=== PATIENT | male | born 1955 | race Native Hawaiian/Other Pacific Islander ===

== ENCOUNTER 2021-03-11 08:51 | Outpatient (CLI) | payer OTHER | END 2021-03-11 19:30 | disposition home or self-care (01) | LOC: CT 08:51 | PROVIDERS: ATTEND Internal Medicine | DX: Z94.2 Lung transplant status (principal); Z13.820 Encounter for screening for osteoporosis; M81.8 Other osteoporosis without current pathological fracture ==

== ENCOUNTER 2021-05-14 07:57 | Outpatient (CLI) | payer OTHER | END 2021-05-14 19:06 | disposition home or self-care (01) | LOC: RESP 07:57 | PROVIDERS: ATTEND Specialist | DX: G62.89 Other specified polyneuropathies (principal) | CPT/HCPCS: 95885; 95907 ==

== ENCOUNTER 2021-05-15 12:05 | Outpatient (CLI) | payer OTHER | END 2021-05-15 20:22 | disposition home or self-care (01) | LOC: LABW 12:05 | PROVIDERS: ATTEND Specialist | DX: G62.89 Other specified polyneuropathies (principal); Z94.2 Lung transplant status; R53.82 Chronic fatigue, unspecified | CPT/HCPCS: 36415; 80074; 82175; 84446; 85652; 86140; 86225; 86334 ==

== ENCOUNTER 2021-06-12 10:55 | Outpatient (CLI) | payer OTHER ==
[2021-06-12 11:41] LABS: PLATELET COUNT 229 K/uL (142-355)
[2021-06-12 12:11] LABS: POTASSIUM 3.9 mmol/L (3.6-5.2)
== END 2021-06-12 18:55 | disposition home or self-care (01) ==
LOC: RAD 10:55 → LABW 10:55 → RAD 18:55
PROVIDERS: ATTEND Plastic Surgery Plastic Surgery Within the Head and Neck
DX: Z01.812 Encounter for preprocedural laboratory examination (principal); Z01.818 Encounter for other preprocedural examination
CPT/HCPCS: 36415; 80053; 85027

== ENCOUNTER 2022-01-03 11:28 | Outpatient (CLI) | payer OTHER ==
[2022-01-03 12:30] LABS: PLATELET COUNT 190 K/uL (142-355)
[2022-01-03 13:02] LABS: POTASSIUM 4.1 mmol/L (3.6-5.2)
== END 2022-01-03 21:57 | disposition home or self-care (01) ==
LOC: LAB 11:28
PROVIDERS: ATTEND Internal Medicine
DX: I10 Essential (primary) hypertension (principal); E55.9 Vitamin D deficiency, unspecified
CPT/HCPCS: 80053; 80061; 81002; 82306; 84439; 84443; 85027

== ENCOUNTER 2022-06-18 15:02 | Outpatient (CLI) | payer OTHER ==
[2022-06-18 15:32] LABS: PLATELET COUNT 207 K/uL (142-355)
[2022-06-18 16:16] LABS: POTASSIUM 4.1 mmol/L (3.6-5.2)
== END 2022-06-18 19:32 | disposition home or self-care (01) ==
LOC: LAB 15:02
PROVIDERS: ATTEND Internal Medicine
DX: Z00.00 Encounter for general adult medical examination without abnormal findings (principal); Z12.5 Encounter for screening for malignant neoplasm of prostate; N40.0 Benign prostatic hyperplasia without lower urinary tract symptoms; M81.0 Age-related osteoporosis without current pathological fracture; E55.9 Vitamin D deficiency, unspecified; Z79.899 Other long term (current) drug therapy
CPT/HCPCS: 80053; 80061; 81002; 82306; 84153; 84443; 85027

== ENCOUNTER 2022-07-01 07:50 | Outpatient (CLI) | payer OTHER | END 2022-07-01 19:17 | disposition home or self-care (01) | LOC: RAD 07:50 | PROVIDERS: ATTEND Internal Medicine | DX: M81.0 Age-related osteoporosis without current pathological fracture (principal) ==

== ENCOUNTER 2022-07-21 15:48 | Outpatient (CLI) | payer OTHER | END 2022-07-21 21:56 | disposition home or self-care (01) | LOC: RAD 15:48 | PROVIDERS: ATTEND Internal Medicine | DX: R05.9 Cough, unspecified (principal); R60.0 Localized edema ==

== ENCOUNTER 2022-07-23 10:52 | Outpatient (CLI) | payer OTHER | END 2022-07-23 19:22 | disposition home or self-care (01) | LOC: LABW 10:52 | PROVIDERS: ATTEND Internal Medicine | DX: Z94.2 Lung transplant status (principal); R05.3 Chronic cough | CPT/HCPCS: 87486; 87581; 87633; 87798 ==

== ENCOUNTER 2022-07-28 15:33 | Outpatient (CLI) | payer OTHER | END 2022-07-28 19:02 | disposition home or self-care (01) | LOC: LABW 15:33 | PROVIDERS: ATTEND Internal Medicine | DX: Z94.2 Lung transplant status (principal); R05.3 Chronic cough | CPT/HCPCS: 87486; 87581; 87633; 87798 ==

== ENCOUNTER 2022-08-20 13:18 | Outpatient (CLI) | payer OTHER | END 2022-08-20 23:04 | disposition home or self-care (01) | LOC: US 13:18 | PROVIDERS: ATTEND Internal Medicine | DX: R06.09 Other forms of dyspnea (principal) | CPT/HCPCS: 36415; 82565; 84520; Q9963 ==

== ENCOUNTER 2022-08-20 15:00 | Emergency (ER) | payer OTHER ==
[~2022-08-20] VITALS: Ht 175.3 cm; Wt 71.2 kg
[2022-08-20 15:10] VITALS: TEMP 98.7
[2022-08-20 15:55] LABS: PLATELET COUNT 193 K/uL (142-355)
[2022-08-20 15:59] LABS: POTASSIUM 3.8 mmol/L (3.6-5.2)
[2022-08-20 16:08] LABS: PARTIAL THROMBOPLASTIN TIME 23.2 SECONDS (24.5-33.6)
[2022-08-20 22:20] VITALS: BP 120/78
== END 2022-08-20 22:20 | disposition short-term general hospital (02) ==
LOC: ED 15:00
PROVIDERS: Emergency Medicine
DX: I82.411 Acute embolism and thrombosis of right femoral vein (principal); I82.431 Acute embolism and thrombosis of right popliteal vein; I82.441 Acute embolism and thrombosis of right tibial vein; I26.99 Other pulmonary embolism without acute cor pulmonale; R60.0 Localized edema; Z11.52 Encounter for screening for COVID-19
CPT/HCPCS: 80053; 83880; 84484; 85027; 85610; 85730; 87635; 93005; 96365; 99285; J1644; U0003

== ENCOUNTER 2022-10-01 08:30 | Outpatient (CLI) | payer OTHER | END 2022-10-01 19:01 | disposition home or self-care (01) | LOC: US 08:30 | PROVIDERS: ATTEND Student in an Organized Health Care Education/Training Program | DX: I82.4Y1 Acute embolism and thrombosis of unspecified deep veins of right proximal lower extremity (principal) ==

== ENCOUNTER 2023-07-17 07:16 | Outpatient (CLI) | payer OTHER ==
[~2023-07-17 07:16] MED LIST: 904272561 PO; AMLODIPINE BESYLATE PO; ASCO500T18 PO; ASPIR-LOW81 MG PO; AZIT250T3 PO; CRESEMBA186 MG PO; CRESTOR20 MG PO; EVEROLIMUS0.25 MG PO; FOLIC ACID PO; IRON PO; JANTOVEN3 MG PO; MAG-DELAY PO; METO25TA4 PO; MULTIVITAMIN PO; NEURONTIN 100M100 MG PO; PRED5TAB3 PO; PROGRAF0.5 MG PO; RAPAMUNE0.5 MG PO; SILDENAFIL50 MG PO; TAMS0.4C PO; TYLENOL325 MG PO; VALCYTE450 MG PO; VITAMIN D CALCIUM PO
== END 2023-07-17 19:58 | disposition home or self-care (01) ==
LOC: LABW 07:16
PROVIDERS: ATTEND Internal Medicine
DX: D64.9 Anemia, unspecified (principal); I10 Essential (primary) hypertension
CPT/HCPCS: 36415; 80076; 82607; 82728; 82747; 83540; 83550; 84439; 84443